=== PATIENT | female | born 1990 | race Caucasian/White ===

== ENCOUNTER 2019-01-09 09:34 | Emergency (ER) | payer MEDICAID ==
[~2019-01-09] VITALS: Ht 160 cm; Wt 104.5 kg
[2019-01-09 09:42] VITALS: BP 126/73
[2019-01-09] MEDS ORDERED: mupirocin 2% ointment 22GM TP STA (12:14)
== END 2019-01-09 13:06 | disposition home or self-care (01) ==
LOC: ER 09:35
DX: S61.001A Unspecified open wound of right thumb without damage to nail, initial encounter (principal); F12.90 Cannabis use, unspecified, uncomplicated; X58.XXXA Exposure to other specified factors, initial encounter; Y93.89 Activity, other specified; Y92.89 Other specified places as the place of occurrence of the external cause; Y99.8 Other external cause status
CPT/HCPCS: 87502; 87503; 99283